=== PATIENT | female | born 1970 | race African-American/Black ===

== ENCOUNTER 2016-08-10 16:22 | Emergency (ER) | payer OTHER ==
[~2016-08-10 16:22] MED LIST: FLAGYL PO; KEFLEX500 MG PO; LORTAB 5/500 TA1 TA1 PO; PHENERGAN25 M1 PO; VIBRAMYCIN100 M1 PO; ZOFRAN PO; [UNRECOGNIZED DRUG - REMARK]
== END 2016-08-10 16:25 | disposition home or self-care (01) ==
LOC: CFTX 16:22
DX: L02.416 Cutaneous abscess of left lower limb (principal); J45.909 Unspecified asthma, uncomplicated; Z98.890 Other specified postprocedural states
CPT/HCPCS: 10060; 87070; 87077; 87186; 87205; 99283